=== PATIENT | female | born 1975 | race Caucasian/White ===

== ENCOUNTER 2024-04-14 18:40 | Emergency (ER) | payer OTHER, BC ==
[2024-04-14 18:58] VITALS: BP 129/85; PULSE 63; RESP 18; TEMP 98.4; BMI 40.4
[2024-04-14] MEDS ORDERED: KETOROLAC TROMETHAMINE 30 MG/1 ML VIAL ONE (21:14)
[2024-04-14] MEDS: KETOROLAC TROMETHAMINE 60 MG/2 ML VIAL IM ONE (21:23)
== END 2024-04-14 21:36 | disposition home or self-care (01) ==
LOC: FER 18:40
PROC: 3E0133Z Introduction of Anti-inflammatory into Subcutaneous Tissue, Percutaneous Approach (ICD-10-PCS; principal; 2024-04-14)
DX: S16.1XXA Strain of muscle, fascia and tendon at neck level, initial encounter (principal); S39.012A Strain of muscle, fascia and tendon of lower back, initial encounter; S90.01XA Contusion of right ankle, initial encounter; V49.40XA Driver injured in collision with unspecified motor vehicles in traffic accident, initial encounter
CPT/HCPCS: 72050-TC-FY; 72100-TC-FY; 73610-TC-RT-FY; 99284-25

== ENCOUNTER 2025-03-23 06:52 | Day surgery (SDC) | payer BC ==
[2025-03-20 16:09] VITALS: BMI 40.6
[2025-03-23] MEDS ORDERED: ONDANSETRON 4 MG/2 ML VIAL IVPUSH PRN (10:38)
[2025-03-23] MEDS ORDERED: oxyCODONE HCL 5 MG TABLET PO PRN ×2 (10:38)
[2025-03-23] MEDS ORDERED: PROMETHAZINE HCL 25 MG/1 ML VIAL IVPB PRN (10:38)
[2025-03-23] MEDS ORDERED: BUPIVACAINE HCL/PF 0.5% (5MG/ML) 10 ML VIAL ONE (10:39)
[2025-03-23] MEDS ORDERED: LIDOCAINE HCL 1%, 10 MG/ML (20ML VIAL) ONE (10:39)
[2025-03-23] MEDS ORDERED: LACTATED RINGERS SOLUTION 1,000 ML IV SCH (10:45)
[2025-03-23] MEDS ORDERED: PROPOFOL 20 ML ONE (11:00)
[2025-03-23] MEDS ORDERED: MIDAZOLAM HCL 2 MG/2 ML SINGLE DOSE VIAL ONE (11:00)
[2025-03-23] MEDS ORDERED: ceFAZolin SODIUM 1 GM VIAL ONE (11:04)
[2025-03-23] MEDS: ceFAZolin 2 GRAM PREMIX BAG IVPB ONE ×2 (11:08)
[2025-03-23] MEDS ORDERED: KETOROLAC TROMETHAMINE 30 MG/1 ML VIAL ONE (11:12)
[2025-03-23] MEDS ORDERED: ACETAMINOPHEN INJECTION 100 ML ONE (11:15)
[2025-03-23 13:44] VITALS: RESP 18
[2025-03-23 14:54] VITALS: BP 114/65; PULSE 72; TEMP 97.8
== END 2025-03-23 14:35 | disposition home or self-care (01) ==
LOC: JASU-SURG 06:52
PROVIDERS: ATTEND Surgery
PROC: 0JB90ZZ Excision of Buttock Subcutaneous Tissue and Fascia, Open Approach (ICD-10-PCS; principal; 2025-03-23 12:00)
DX: D17.39 Benign lipomatous neoplasm of skin and subcutaneous tissue of other sites (principal)
CPT/HCPCS: 81025; 88304-TC; 94760; J0131